=== PATIENT | female | born 1995 | race Caucasian/White ===

== ENCOUNTER 2018-02-15 12:57 | Emergency (ER) | payer OTHER ==
[~2018-02-15 12:57] MED LIST: AMOXICILLIN875 M1 PO; BACTRIM DS TAB1 EACH PO; IBUPROFEN800 M1 PO
--- NOTE | 2018-02-15 15:51 | ED ANIMAL BITE/WOUND CHECK ---
History of Present Illness General Chief Complaint: Suture Removal/Wound Recheck Stated Complaint: ABCESS CHECK Source: patient Exam Limitations: no limitations Vital Signs & Intake/Output Vital Signs & Intake/Output Vital Signs Date Time Temp Pulse Resp B/P B/P Pulse O2 O2 Flow FiO2 Mean Ox Delivery Rate 02/15 1307 98.3 91 16 110/72 96 Room Air Allergies Coded Allergies: peanut (Severe, ANAPHYLAXIS 02/11/18) Reconcile Medications Amoxicillin 875 MG TABLET 1 TAB PO BID ABSCESS Ibuprofen 800 MG TABLET 1 TAB PO TID PRN PAIN Sulfamethoxazole/Trimethoprim (Bactrim Ds Tablet) 800 MG-160 MG TABLET 1 TAB PO BID ABSCESS Triage Note: PT TO ED FOR ABCESS CHECK TO [facility]. Triage Nurses Notes Reviewed? yes Onset: Abrupt Duration: day(s): (5), better, gone now Timing: single episode today Injury Environment: home Is Injury an Animal Bite? No No Modifying Factors: none LMP (ages 10-50): unknown : No Patient currently breastfeeds: No HPI: 22-year-old female with no past medical history presents for evaluation and wound check. She had a incision and drainage of a pilonidal cyst 3 days ago. She's been taking antibiotics change dressing once daily. She feels like she is feeling much better. She's had no fever pain spreading redness or worsening swelling. She has kept the packing in place. Past History Travel History Traveled to [place] past 21 day No Medical History Any Pertinent Medical History? 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 No Review of Systems Review of Systems Constitutional: Reports: no symptoms. EENTM: Reports: no symptoms. Respiratory: Reports: no symptoms. Cardiovascular: Reports: no symptoms. GI: Reports: no symptoms. Genitourinary: Reports: no symptoms. Musculoskeletal: Reports: no symptoms. Skin: Reports: see HPI, cysts, lesions. Neurological/Psychological: Reports: no symptoms. Hematologic/Endocrine: Reports: no symptoms. Immunologic/Allergic: Reports: no symptoms. All Other Systems: Reviewed and Negative Physical Exam Physical Exam General Appearance: well developed/nourished, no apparent distress, alert, awake Head: atraumatic, normal appearance Eyes: Bilateral: normal appearance, EOMI. Ears, Nose, Throat: hearing grossly normal Neck: normal inspection, supple, full range of motion Respiratory: no respiratory distress Back: normal range of motion, pilonidal abscess site is healing well. Erythema has receded. There is still a 2 cm x 2 cm area of induration and tenderness to palpation. Small amount of purulent discharge.no focal fluctuant areas Extremities: normal range of motion Neurologic/Psych: no motor/sensory deficits, awake, alert, oriented x 3, normal gait Skin: intact, normal color, warm/dry Progress Differential Diagnosis: abscess, cellulitis, pilonidal cyst, pilonidal abscess Plan of Care: Patient seen and evaluated. Her abscess is healing well. Erythema has receded. Packing was removed small amount of purulent discharge present. The area was cleaned with chlorhexidine and a sterile dressing applied. Advised patient to continue taking antibiotics for the full course. Culture grew mixed sanam. Advised patient to follow up with general surgeon for definitive treatment. Discussed return precautions return with any concerns patient agrees. Departure Departure Disposition: HOME OR SELF CARE Condition: Stable Clinical Impression Primary Impression: Pilonidal abscess Referrals: Patient Has No Primary Care Dr (PCP/Family) Additional Instructions: Continue to take antibiotics for the full course. Continue to change dressing once daily. Apply warm compresses for 15-20 minutes every few hours. Make a follow-up appointment with provided general surgeon for definitive treatment. Monitor symptoms closely if you have worsening pain, fever, spreading redness any other concerns return immediately. Departure Forms: Customer Survey General Discharge Information
[2018-02-15 16:03] VITALS: BP 111/63
== END 2018-02-15 16:08 ==
LOC: ERH 12:57
DX: Z48.00 Encounter for change or removal of nonsurgical wound dressing (principal)

== ENCOUNTER 2018-03-22 17:19 | Emergency (ER) | payer OTHER ==
[~2018-03-22] VITALS: Ht 160 cm; Wt 63.5 kg
[2018-03-22 17:23] VITALS: BP 121/76
--- NOTE | 2018-03-22 17:48 | ED GI/GU/ABDOMINAL COMPLAINT ---
History of Present Illness General Chief Complaint: Female Urogenital Problems Stated Complaint: RECENT +PREG,CRAMPING,LIGHT BLEEDING,N/V Source: patient, family, old records Exam Limitations: no limitations Vital Signs & Intake/Output Vital Signs & Intake/Output Vital Signs Date Time Temp Pulse Resp B/P B/P Pulse O2 O2 Flow FiO2 Mean Ox Delivery Rate 03/22 1723 98.2 78 18 121/76 98 Room Air Allergies Coded Allergies: peanut (Severe, ANAPHYLAXIS 02/11/18) Reconcile Medications Amoxicillin 875 MG TABLET 1 TAB PO BID ABSCESS Ibuprofen 800 MG TABLET 1 TAB PO TID PRN PAIN Ondansetron (Zofran Odt) 4 MG TAB.RAPDIS 1 TAB SL TID PRN nausea Sulfamethoxazole/Trimethoprim (Bactrim Ds Tablet) 800 MG-160 MG TABLET 1 TAB PO BID ABSCESS Triage Note: PT TO ER C/C LOWER ABD CRAMPING, LIGHT VAGINAL BLEEDING AND N/V X 1 DAY. TOOK HOME TEST 2 DAYS AGO, +. LMP 02/02/2018. HAS NOT SEEN OBGYN YET. Triage Nurses Notes Reviewed? yes ? y Is pt currently ? No Onset: Abrupt Duration: day(s): (1), better, resolved prior to arrival Timing: recent history Quality/Severity: cramping Severity Numbers: 1 Location: generalized abdomen Radiation: no radiation Activities at Onset: none No Modifying Factors: none Associated Symptoms: nausea/vomiting HPI: 23-year-old female presents to the ER for evaluation after she developed light generalized abdominal cramping and vaginal spotting yesterday. Nausea vomiting times one today. They spotting and cramping has since resolved. She states her last menstrual cycle was February 02. She took a test 2 days ago that was positive. She is not establish care with a final installer inspector yet. Her only abdominal surgery see him for a . She denies diarrhea urinary urgency frequency and dysuria. No history of ectopic she denies pain at this time (Sp Dalal) Past History Travel History Traveled to [place] past 21 day No Medical History Any Pertinent Medical History? 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 No (Sp Dalal) Review of Systems Review of Systems Constitutional: Reports: see HPI. Comments Review of systems: See HPI, All other systems negative. Constitutional, no chills no fever, HEENT: no sore throat no congestion Cardiovascular: No chest pain Skin: no rashes, no change in skin Respiratory: No dyspnea no cough no sputum GI: No nausea no vomiting, no diarrhea, no bloating/constipation : No dysuria No hematuria, no frequency Muscle skeletal: No joint pain, no back pain, no neck pain Neurologic: , no headache Heme/endocrine: No bruising (Sp Dalal) Physical Exam Physical Exam General Appearance: well developed/nourished, no apparent distress, alert, awake Gastrointestinal: soft Comments: Well-developed well-nourished person in no acute distress HEENT: Normal EENT exam; PERRL, EOMI,HEAD is atraumatic. moist mucous membranes. Neck: Supple, normal range of motion Back: Nontender, no CVA tenderness. Full range of motion Cardiovascular: Regular rate and rhythms no murmurs Respiratory: No respiratory distress. Patient speaking in full complete sentences. Breath sounds clear to auscultation bilaterally: NO W/R/R Abdomen: Soft, nontender nondistended, no appreciable organomegaly. Normal bowel sounds. No rebound/guarding, Extremity: No edema, full range of motion of extremities Neuro: Alert oriented x3, motor sensory normal, There were no obvious focal neurologic abnormalities. Skin: No appreciable rash on exposed skin, skin is warm and dry. Psych: Mood and affect is normal, memory and judgment is normal. Core Measures ACS in differential dx? No Sepsis Present: No Sepsis Focused Exam Completed? No (Sp Dalal) Progress Differential Diagnosis: ectopic , intrauterine , threatened AB , UTI/pyelo Plan of Care: Orders Procedure Date/time Status RHOGAM WORK-UP 03/22 1740 Complete URINE 03/22 1721 Complete URINALYSIS 03/22 1721 Complete HUMAN BETA HCG TITRE 03/22 172 Complete COMPREHENSIVE METABOLIC PANEL 03/22 172 Complete CBC WITHOUT DIFFERENTIAL 03/22 172 Complete Laboratory Tests 03/22/18 1907: Urine Color YEL, Urine Clarity CLEAR, Urine pH 6.5, Ur Specific [place] 1.020, Urine Protein NEG, Urine Ketones NEG, Urine Nitrite NEG, Urine Bilirubin NEG, Urine Urobilinogen 0.2, Ur Leukocyte Esterase NEG, Ur Microscopic SEDIMENT EXAMINED, Urine RBC 1-3, Urine WBC 1-3 H, Ur Epithelial Cells FEW, Urine Bacteria FEW H, Urine Mucus MANY H, Urine Hemoglobin MOD H, Urine Glucose NEG , Urine Test POSITIVE 03/22/18 1750: Anion Gap 12, Estimated GFR > 60, BUN/Creatinine Ratio 13.3, Glucose 89, Calcium 9.5, Total Bilirubin 1.0, AST 19, ALT 22, Alkaline Phosphatase 62, Total Protein 7.5, Albumin 4.2, Globulin 3.3, Albumin/Globulin Ratio 1.3, Beta HCG, Quant 40744.0, CBC w Diff NO MAN DIFF REQ, RBC 4.29, MCV 88.8, MCH 30.0, MCHC 33.7, RDW 13.8, MPV 9.6, Gran % 69.6, Lymphocytes % 19.8 L, Monocytes % 7.9, Eosinophils % 2.4, Basophils % 0.3, Absolute Granulocytes 7.4 H, Absolute Lymphocytes 2.1, Absolute Monocytes 0.8 H, Absolute Eosinophils 0.3, Absolute Basophils 0 Patient medicated with IV Tylenol IV Zofran and IV fluids labs ordered case discussed with Dr. morales- patient is resting in no acute distress denies pain abdomen is soft Nontender at this time I discussed with the patient at length all of their results. saeed has no pain , abd exam is unremarkable and nontender, i d/w plan of care i will provide her with outpt form for us in am. I had an extensive conversation regarding need for close follow up with [employer] MECH[employer]IC Dr. astorga this week as well as return precautions. I answered all of their questions, they feel comfortable with the plan and follow-up care. I discussed with the patient/family the medications that they will receive. I gave them signs and symptoms that could indicate an adverse reaction. I have advised them to limit their activities until they can see how they respond to the medication. Initial ED EKG: none (Lisa RASHID,Sp) Departure Departure Time of Disposition: 1918 Disposition: HOME OR SELF CARE Condition: Stable Clinical Impression Primary Impression: Referrals: Patient Has No Primary Care Dr (PCP/Family) Moris Little MD Additional Instructions: Follow up with [facility] airspace control officer dr astorga tomorrow for follow up. tylenol for pain if it develops, zofran for nausea. return if you have any concerns Departure Forms: Customer Survey General Discharge Information Prescriptions: Current Visit Scripts Ondansetron (Zofran Odt) 1 TAB SL TID PRN nausea #10 TAB (Sp Dalal) PA/BRANCH EXAMINER Co-Sign Statement Statement: ED Attending supervision documentation- x I saw and evaluated the patient. I have also reviewed all the pertinent lab results and diagnostic results. I agree with the findings and the plan of care as documented in the PA's/BRANCH EXAMINER's documentation. [] I have reviewed the ED Record and agree with the PA's/BRANCH EXAMINER's documentation. [] Additions or exceptions (if any) to the PAs/BRANCH EXAMINER's note and plan are summarized below: [] (Denisse GREENWOOD,Jose)
[2018-03-22 18:12] LABS: ABSOLUTE BASOPHIL COUNT 0 /CUMM (0.0-0.2); ABSOLUTE EOSINOPHIL COUNT 0.3 /CUMM (0.0-0.7); ABSOLUTE GRANULOCYTE CT 7.4 /CUMM (1.4-6.5); ABSOLUTE LYMPH COUNT 2.1 /CUMM (1.2-3.4); ABSOLUTE MONOCYTE COUNT 0.8 /CUMM (0.10-0.60); BASOPHIL % 0.3 % (0.0-2.0); EOSINOPHIL % 2.4 % (0-5); GRANULOCYTE % 69.6 % (42.2-75.2); HEMATOCRIT 38.1 % (37-47); MEAN CORPUSCULAR HGB CONC 33.7 G/DL (33.0-37.0); MEAN CORPUSCULAR VOLUME 88.8 FL (81.0-99.0); MEAN PLATELET VOLUME 9.6 FL (7.4-10.4); PLATELET COUNT 279 /CUMM (130-400); RBC DISTRIBUTION WIDTH 13.8 % (11.5-14.5); RED BLOOD CELL CT 4.29 /CUMM (4.20-5.40); WHITE BLOOD CELL COUNT 10.6 /CUMM (4.8-10.8)
[2018-03-22] MEDS ORDERED: ZOFRAN ODT4 M1 SL (19:20)
== END 2018-03-22 19:35 ==
LOC: ERH 17:19
PROVIDERS: Physician Assistant Medical
DX: O20.9 Hemorrhage in early pregnancy, unspecified (principal); Z3A.00 Weeks of gestation of pregnancy not specified
CPT/HCPCS: 81001; 81025; 96374; 96375; J0131; J2405

== ENCOUNTER 2018-04-07 08:51 | Inpatient (IN) | payer OTHER ==
[~2018-04-07] VITALS: Ht 160 cm; Wt 72.6 kg
[~2018-04-07 08:51] MED LIST changes: +ZOFRAN ODT4 M1 SL
--- NOTE | 2018-04-07 11:11 | ED GENERAL ADULT ---
History of Present Illness General Chief Complaint: Nausea, Vomiting, Diarrhea Stated Complaint: PT STATES "IM PREG AND CANT KEEP ANYTHING IN" Source: patient Exam Limitations: no limitations Vital Signs & Intake/Output Vital Signs & Intake/Output Vital Signs Date Time Temp Pulse Resp B/P B/P Pulse O2 O2 Flow FiO2 Mean Ox Delivery Rate 04/08 0640 98.1 69 20 106/72 98 Room Air 04/07 2127 98.8 97 18 116/71 98 Room Air 04/07 1935 97 04/07 1925 98.9 97 18 102/57 99 Room Air 04/07 1731 97.3 76 18 112/56 98 04/07 1423 98.2 78 18 118/70 98 Room Air 04/07 1235 98.2 84 18 100/58 100 Room Air 04/07 0859 98.0 99 18 109/73 99 Room Air ED Intake and Output 04/08 0000 04/07 1200 Intake Total Output Total Balance Patient 160 lb 160 lb Weight Weight Reported by Patient Measurement Method Allergies Coded Allergies: peanut (Severe, ANAPHYLAXIS 02/11/18) Reconcile Medications No Known Home Medications Triage Note: 23F WELL APPEARING, STATES SHE'S BUT UNSURE HOW FAR ALONG HER OBGYN HAS NOT TOLD HER YET. FOLLOWED BY DR TRACEY. LAST MENSES January. REPORTS CRAMPING TO LOWER ABDOMEN, WITH YELLOW VAGINAL DISCHARGE. . STATES SHE HAS NOT BEEN ABLE TO EAT FOR 3 DAYS AND UNABLE TO KEEP FLUIDS DOWN. VOMITED X3 TODAY, ENDORSES POOR SLEEP AND DIZZINESS Triage Nurses Notes Reviewed? yes Onset: Gradual Duration: day(s): Timing: constant : Yes Patient currently breastfeeds: Yes HPI: 23 y/o otherwise healthy female at unknown gestation (LMP 02/02/18) presenting with fevers to 101F, NVD, and lower abd cramping x3 days. Also endorses scent yellow vaginal discharge. Denies dysuria, hematuria, or vaginal bleeding. No sick contacts or recent travel. (Josefa Madrigal) Past History Travel History Traveled to [place] past 21 day No Medical History Any Pertinent Medical History? 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 No (Josefa Madrigal) Review of Systems Review of Systems Constitutional: Reports: see HPI. EENTM: Reports: no symptoms. Respiratory: Reports: no symptoms. Cardiovascular: Reports: no symptoms. GI: Reports: see HPI. Genitourinary: Reports: see HPI. Musculoskeletal: Reports: no symptoms. Skin: Reports: no symptoms. Neurological/Psychological: Reports: no symptoms. Hematologic/Endocrine: Reports: no symptoms. Immunologic/Allergic: Reports: no symptoms. (Josefa Madrigal) Physical Exam Physical Exam General Appearance: well developed/nourished, alert, awake Head: atraumatic, normal appearance Eyes: Bilateral: normal appearance. Neck: normal inspection Respiratory: normal breath sounds, lungs clear Cardiovascular: regular rate/rhythm Gastrointestinal: normal bowel sounds (diffsue, worse in RLQ), soft, tenderness (RUQ), mild guarding, no rebound Back: normal inspection, Mild right CVAT Extremities: normal inspection Neurologic/Psych: awake, alert, oriented x 3, normal mood/affect Skin: intact, normal color, warm/dry Core Measures ACS in differential dx? No CVA/TIA Diagnosis: No Sepsis Present: No Sepsis Focused Exam Completed? No (Josefa Madrigal) Progress Differential Diagnoses I considered the following diagnoses in my evaluation of the patient: [ hyperemesis gravidarum vs gastroenteritis vs ectopic vs PID/TOA vs UTI/pyelo vs appendicitis] Plan of Care: Orders Procedure Date/time Status Regular Diet 04/08 B Active Weight 04/07 2213 Active Vital Signs 04/07 2213 Active Teach/Educate 04/07 2213 Active Pain Treatment and Response 04/07 2213 Active Nutritional Intake, Monitor 04/07 2213 Active Isolation 04/07 2213 Active Intake & Output 04/07 2213 Active Patient Care Conference 04/07 2213 Active Activity/Ambulation 04/07 2213 Active Patient Data 04/07 2042 Active ED Holding Orders 04/07 1840 Active Admit to inpatient 04/07 1840 Active Vital Signs 04/07 1840 Active Code Status 04/07 1840 Active CHLAMYDIA-GC DNA PROBE 04/07 1216 Active CULTURE,URINE 04/07 1113 Active URINALYSIS 04/07 1113 Complete LIPASE 06/13 1113 Complete HUMAN BETA HCG TITRE 04/07 1113 Complete CBC WITHOUT DIFFERENTIAL 04/07 1113 Complete BASIC METABOLIC PANEL 04/07 1113 Complete TYPE & SCREEN (NOT X-MATCH) 04/07 1113 Complete Admit to inpatient 04/07 UNK Active Current Medications Sig/Brandy Start time Last Medication Dose Stop Time Status Admin Ceftriaxone Sodium 2,000 MG DAILY 04/08 0900 AC (Rocephin) Folic Acid 1 MG DAILY 04/08 0900 AC (Folic Acid) Pyridoxine HCl 50 MG DAILY 04/07 1900 AC 04/07 (Vitamin B6) 2024 Metoclopramide HCl 5 MG Q4-6 PRN PRN 04/07 184 AC 04/07 (Reglan) 223 Ondansetron HCl 4 MG Q4-6 PRN PRN 04/07 184 AC 04/08 (Zofran) 0529 Sodium Chloride 1,000 ML Q10H 04/07 184 AC 04/08 (Normal Saline 0.9%) 0529 Laboratory Tests 04/07/18 1234: Urine Color YEL, Urine Clarity CLDY H, Urine pH 6.5, Ur Specific [place] 1.020, Urine Protein 30 H, Urine Ketones >=80, Urine Nitrite POS H, Urine Bilirubin NEG, Urine Urobilinogen 2.0 H, Ur Leukocyte Esterase TRACE H, Ur Microscopic SEDIMENT EXAMINED, Urine RBC 10-15 H, Urine WBC 15-25 H, Ur Epithelial Cells FEW, Urine Bacteria MANY H, Urine Hemoglobin LARGE H, Urine Glucose NEG 04/07/18 1142: Anion Gap 18 H, Estimated GFR > 60, BUN/Creatinine Ratio 24.0, Glucose 89, Calcium 10.2, Lipase 50, Beta HCG, Quant 561516.0, CBC w Diff NO MAN DIFF REQ, RBC 4.81, MCV 88.6, MCH 30.5, MCHC 34.4, RDW 13.8, MPV 9.0, Gran % 83.9 H, Lymphocytes % 10.7 L, Monocytes % 5.1, Eosinophils % 0.1, Basophils % 0.2, Absolute Granulocytes 11.4 H, Absolute Lymphocytes 1.5, Absolute Monocytes 0.7 H, Absolute Eosinophils 0, Absolute Basophils 0 Microbiology 04/07 1653 URINE ROUT: GC DNA Probe - RECD 04/07 1653 URINE ROUT: Chlamydia DNA Probe (MILLICENT) - RECD 04/07 [id number] URINE ROUT: Urine Culture - RECD UA concerning for infection with WBC's, RBC's, and nitrites. Culture sent. Covered with ceftriaxone. US shows IUP at 8 weeks gestation. No hydro or signs of renal stones. Likely with gastroenteritis and secondary UTI/pyelo from recent dirrhea. Discussed with Dr. Berry who evaluated the pt and will admit for further observation. Discussed with EDMD. Initial ED EKG: none (Josefa Madrigal) Departure Departure Disposition: STILL A PATIENT Condition: Stable Clinical Impression Primary Impression: Pyelonephritis Secondary Impressions: Abdominal pain, First trimester , Nausea vomiting and diarrhea Referrals: Moris Little MD (PCP/Family) Departure Forms: Customer Survey General Discharge Information Prescriptions: Current Visit Scripts No Known Home Medications Admission Note Spoke With: Charlie Berry MD Documentation of Exam: Documentation of any treatments & extenuating circumstances including Concerns Regarding Discharge (functional status, medication knowledge or non-compliance, living conditions, etc.) that warrant an admission rather than observation: [IV abx, IVF, anti-emetics, hemodynamic monitoring, monitoring] (Josefa Madrigal) PA/INSULATION PACKER Co-Sign Statement Statement: ED Attending supervision documentation- [X] I saw and evaluated the patient. I have also reviewed all the pertinent lab results and diagnostic results. I agree with the findings and the plan of care as documented in the PA's/INSULATION PACKER's documentation. [X] I have reviewed the ED Record and agree with the PA's/INSULATION PACKER's documentation. [] Additions or exceptions (if any) to the PAs/INSULATION PACKER's note and plan are summarized below: [Patient to be admitted for IV antibiotics to the gynecology service. Patient will need IV fluids. Closer monitored the baby.] (Danielle GREENWOOD,Chirag Jeong) Critical Care Note Critical Care Note Critical Care Time: non-applicable (Josefa Madrigal)
[2018-04-07 11:50] LABS: ABSOLUTE BASOPHIL COUNT 0 /CUMM (0.0-0.2); ABSOLUTE EOSINOPHIL COUNT 0 /CUMM (0.0-0.7); ABSOLUTE GRANULOCYTE CT 11.4 /CUMM (1.4-6.5); ABSOLUTE LYMPH COUNT 1.5 /CUMM (1.2-3.4); ABSOLUTE MONOCYTE COUNT 0.7 /CUMM (0.10-0.60); BASOPHIL % 0.2 % (0.0-2.0); EOSINOPHIL % 0.1 % (0-5); GRANULOCYTE % 83.9 % (42.2-75.2); HEMATOCRIT 42.6 % (37-47); MEAN CORPUSCULAR HGB 30.5 PG (27.0-31.0); MEAN CORPUSCULAR HGB CONC 34.4 G/DL (33.0-37.0); MEAN CORPUSCULAR VOLUME 88.6 FL (81.0-99.0); PLATELET COUNT 317 /CUMM (130-400); RBC DISTRIBUTION WIDTH 13.8 % (11.5-14.5); RED BLOOD CELL CT 4.81 /CUMM (4.20-5.40); WHITE BLOOD CELL COUNT 13.6 /CUMM (4.8-10.8)
--- NOTE | 2018-04-07 14:48 | ULTRASOUND REPORT ---
EXAMINATION: ULTRASOUND OF THE PELVIS ULTRASOUND OF THE RIGHT LOWER QUADRANT CLINICAL INFORMATION: Right lower quadrant pain in a patient. Presumptive diagnosis of appendicitis. Evaluate viability. COMPARISON: ultrasound dated 03/23/2018. TECHNIQUE: Transabdominal viability pelvic ultrasound. A graded compression right lower quadrant ultrasound was also performed. Real-time assessment by the reading radiologist was performed. FINDINGS: Based on the initial dating exam from 03/23/2018, a 8 week gestation is expected with an estimated date of delivery of 11/15/2018. Ultrasound of the pelvis: A single live intrauterine gestation is identified with a positive heartbeat of 154 bpm. The decidual reaction around the gestational sac appears normal. There may be a subtle small amount of subchorionic hemorrhage along the inferior margin of the lower uterine segment. A pole is not identified with a crown-rump length of 1.6 cm which equals 8 weeks and 0 days. A yolk sac is identified, measuring 0.3 cm. The ovaries bilaterally are identified and are normal. The left ovary measures 3.3 x 1.65 2.2 cm and demonstrates normal arterial and venous flow. The right ovary measures 3.8 x 1.9 x 2.8 cm and also demonstrates normal arterial and venous flow. There is a small amount of free fluid seen in the cul-de-sac. Right lower quadrant ultrasound: The appendix is not definitely demonstrated due to overlying gas and stool. On initial imaging, a tubular fluid-filled 0.4 cm diameter structure was seen superficially in the right lower quadrant, thought to represent the appendix. However, this was not confirmed on real-time scanning. No inflammatory changes are identified in the right lower quadrant. There is no free fluid in the right lower quadrant. As discussed above, there is a small amount of free fluid in the cul-de-sac. IMPRESSION: 1. Single live intrauterine gestation is identified with a positive heartbeat of 154 bpm and an average gestational age of 8 weeks and 5 days, yielding an estimated date of delivery of 11/12/2018. These dates are similar to the originally established dates. 2. There may be a trace amount of subchorionic hemorrhage along the inferior margin of the lower uterine segment. 3. Ovaries bilaterally appear unremarkable. 4. Small amount of free fluid is seen in the cul-de-sac, likely physiologic. 5. Evaluation of the appendix is non-diagnostic due to overlying gas and stool. No inflammatory changes identified in the right lower quadrant.
--- NOTE | 2018-04-07 17:41 | ULTRASOUND REPORT ---
EXAMINATION: RENAL ULTRASOUND CLINICAL INFORMATION: Right flank pain. Hematuria. COMPARISON: None. TECHNIQUE: Real-time imaging of the kidneys and bladder. FINDINGS: RIGHT KIDNEY: There is neither hydronephrosis nor nephrolithiasis. The right kidney measures 10.8 cm. LEFT KIDNEY: There is neither hydronephrosis nor nephrolithiasis. The left kidney measures 12.0 cm. BLADDER: The urinary bladder is partially filled and unremarkable. There is no wall thickening. There is no pelvic free fluid. IMPRESSION: Normal renal and bladder ultrasound.
--- NOTE | 2018-04-07 18:59 | Cons- OBGYN ---
General Information and HPI Consulting Request Date of Consult: 04/07/18 Requested By: Dr Santos/Josefa RASHID Reason for Consult: Abdominal pain nausea and vomiting and abnormal urine in female with Source of Information: patient Exam Limitations: no limitations History of Present Illness: Patient is a 23 year old at 8 weeks by lmp who presents with 3 day history of nausea and vomiting and fever. Patient states she did take Zofran at home but wasnt helping. She states she is hungry. Denies vaginal bleeding. Allergies/Medications Allergies: Coded Allergies: peanut (Severe, ANAPHYLAXIS 02/11/18) Home Med List: No Known Home Medications Current Medications: Current Medications Sig/Brandy Start time Last Medication Dose Route Stop Time Status Admin Acetaminophen 0 .STK-MED ONE 04/07 1202 DC IV Acetaminophen 1,000 MG ONCE ONE 04/07 1130 DC 04/07 N/A 1 UNIT IV 04/07 1144 1204 Ceftriaxone Sodium 2,000 MG DAILY 04/08 0900 UNVr IV Ceftriaxone Sodium 0 .STK-MED ONE 04/07 1543 DC .ROUTE Ceftriaxone Sodium 1,000 MG ONCE ONE 04/07 1515 DC 04/07 IV 04/07 1516 1543 Metoclopramide HCl 5 MG Q4-6 PRN PRN 04/07 1845 UNVr IV Metoclopramide HCl 0 .STK-MED ONE 04/07 1825 DC .ROUTE Metoclopramide HCl 10 MG ONCE ONE 04/07 1800 DC 04/07 IV 04/07 1801 1822 Ondansetron HCl 4 MG Q4-6 PRN PRN 04/07 1845 UNVr IV Ondansetron HCl 0 .STK-MED ONE 04/07 1543 DC .ROUTE Ondansetron HCl 4 MG ONCE ONE 04/07 1515 DC 04/07 IV 04/07 1516 1543 Ondansetron HCl 0 .STK-MED ONE 04/07 1202 DC .ROUTE Ondansetron HCl 4 MG ONCE ONE 04/07 1115 DC 04/07 IV 04/07 1116 1204 Sodium Chloride 1,000 ML Q10H 04/07 1845 UNVr IV Sodium Chloride 1,000 ML BOLUS ONE 04/07 1115 DC 04/07 IV 04/07 1214 1204 Past History Medical History Blood Transfusion Hx: No Neurological: NONE EENT: NONE Cardiovascular: NONE Respiratory: NONE Gastrointestinal: NONE Hepatic: NONE Renal: NONE Musculoskeletal: NONE Psychiatric: NONE Endocrine: NONE Blood Disorders: NONE Cancer(s): NONE ARCHIVIST/Reproductive: NONE Surgical History Pertinent Surgical History: none (LTCS for arrest of labor 2014), Psychosocial History Where Do You Live? Home Who Do You Live With? spouse, child Services at Home: None Primary Language: Khmer Smoking Status: Never Smoked ETOH Use: denies use Illicit Drug Use: denies illicit drug use Living Will? unknown Power of Counter Attendant/HCP? unknown Functional Ability ADLs Independent: dressing, eating, toileting, bathing. Ambulation: independent IADLs Independent: shopping, housework, finances, food prep, telephone, transportation , medication admin. Employment History Employment: Unemployed Retired? no Review of Systems Review of Systems Constitutional: Reports: fever, malaise, weakness. EENTM: Denies: no symptoms. Cardiovascular: Denies: no symptoms. Respiratory: Denies: no symptoms. GI: Reports: abdominal pain, diarrhea, nausea, vomiting. Genitourinary: Reports: pain. Musculoskeletal: Reports: back pain. Skin: Denies: no symptoms. Neurological/Psychological: Denies: no symptoms. Hematologic/Endocrine: Denies: no symptoms. Immunologic/Allergic: Denies: no symptoms. All Other Systems: Reviewed and Negative Exam & Diagnostic Data Vital Signs and I&O Vital Signs Date Time Temp Pulse Resp B/P B/P Pulse O2 O2 Flow FiO2 Mean Ox Delivery Rate 04/07 1731 97.3 76 18 112/56 98 04/07 1423 98.2 78 18 118/70 98 Room Air 04/07 1235 98.2 84 18 100/58 100 Room Air 04/07 0859 98.0 99 18 109/73 99 Room Air Intake & Output 04/07 1600 04/07 0800 04/07 0000 04/06 1600 04/06 0800 04/06 0000 Intake Total Output Total Balance Patient 72.575 kg Weight Physical Exam General Appearance: alert, awake, moderate distress Head: atraumatic, normal appearance Eyes: Bilateral: normal appearance. Neck: normal inspection, supple Respiratory: normal breath sounds, no respiratory distress Cardiovascular: regular rate/rhythm Gastrointestinal: soft Back: CVA tenderness (R) Extremities: normal inspection Neurologic/Psych: no motor/sensory deficits, awake, alert, oriented x 3 Cranial Nerves: normal hearing, normal speech Skin: warm/dry Last 24 Hours of Labs: Laboratory Tests 04/07 04/07 1234 1142 Chemistry Sodium (137 - 145 mmol/L) 140 Potassium (3.5 - 5.1 mmol/L) 4.1 Chloride (98 - 107 mmol/L) 99 Carbon Dioxide (22 - 30 mmol/L) 23 Anion Gap (5 - 16) 18 H BUN (7 - 17 mg/dL) 12 Creatinine (0.5 - 1.0 mg/dL) 0.5 Estimated GFR (>60 ml/min) > 60 BUN/Creatinine Ratio (7 - 25 %) 24.0 Glucose (65 - 99 mg/dL) 89 Calcium (8.4 - 10.2 mg/dL) 10.2 Lipase (23 - 300 U/L) 50 Beta HCG, Quant (mIU/mL) 347407.0 Hematology CBC w Diff NO MAN DIFF REQ WBC (4.8 - 10.8 /CUMM) 13.6 H RBC (4.20 - 5.40 /CUMM) 4.81 Hgb (12.0 - 16.0 G/DL) 14.7 Hct (37 - 47 %) 42.6 MCV (81.0 - 99.0 FL) 88.6 MCH (27.0 - 31.0 PG) 30.5 MCHC (33.0 - 37.0 G/DL) 34.4 RDW (11.5 - 14.5 %) 13.8 Plt Count (130 - 400 /CUMM) 317 MPV (7.4 - 10.4 FL) 9.0 Gran % (42.2 - 75.2 %) 83.9 H Lymphocytes % (20.5 - 51.1 %) 10.7 L Monocytes % (1.7 - 9.3 %) 5.1 Eosinophils % (0 - 5 %) 0.1 Basophils % (0.0 - 2.0 %) 0.2 Absolute Granulocytes (1.4 - 6.5 /CUMM) 11.4 H Absolute Lymphocytes (1.2 - 3.4 /CUMM) 1.5 Absolute Monocytes (0.10 - 0.60 /CUMM) 0.7 H Absolute Eosinophils (0.0 - 0.7 /CUMM) 0 Absolute Basophils (0.0 - 0.2 /CUMM) 0 Urines Urine Color (YEL,AMB,STR) YEL Urine Clarity (CLEAR) CLDY H Urine pH (5.0 - 8.0) 6.5 Ur Specific Poth (1.001 - 1.035) 1.020 Urine Protein (NEG,<30 MG/DL) 30 H Urine Ketones (NEG) >=80 Urine Nitrite (NEG) POS H Urine Bilirubin (NEG) NEG Urine Urobilinogen (0.1 - 1.0 EU/dl) 2.0 H Ur Leukocyte Esterase (NEG) TRACE H Ur Microscopic SEDIMENT EXAMINED Urine RBC (0 - 5 /HPF) 10-15 H Urine WBC (0 - 2 /HPF) 15-25 H Ur Epithelial Cells (NONE,FEW) FEW Urine Bacteria (NEG/NONE) MANY H Urine Hemoglobin (NEG) LARGE H Urine Glucose (N MG/DL) NEG Imaging Results: Normal renal ultrasound US showing IUP with small subchorionic bleed No free fluid Other Results: No inflammatory changes in RLQ Assessment/Plan Assessment/Plan Patient is a 23 year old female with complicated by history of LTCS and now with right sided pyelonephritis. In my opinion this is not appendicitis. In my opinion her condition warrents admission as I dont think she will be able to tolerate PO at home. Admit ID. Continue 1 gram Ceftriaxone q24 hours. Follow fever curve. Watch for improvement in clinical findings and follow up urine culture. Nausea and vomiting. Stagger dosing of Zofran and reglan prn for nausea. Fen/GI. Maintain on IVF at 100 cc per hour and allow diet as tolerated. Add Vitamin B6 for aid with nausea. confirmed in uterus. MIKE of 11/15/18. Hcg near 200k however no findings of molar . History of LTCS. She will need follow up after discharge with Dr Rodarte who is her stated provider. Face to face ER time and review of records 30 minutes. Ample time for questions for patient and partner. If significant improvement in patient clinically than dc tomorrow however may require up to 48 hours for symptom improvement. She will need to take antibiotics for 10 days and then continue on suppression for to reduce recurrence. Problem List: 1. Pyelonephritis affecting in first trimester Consult Acknowledgment - Thank you for your consult request.
[2018-04-08 06:40] VITALS: BP 106/72
[2018-04-08 13:26] VITALS: BP 116/67
[2018-04-08 22:19] VITALS: BP 100/60
[2018-04-09 06:59] VITALS: BP 100/64
[2018-04-09 13:09] LABS: ABSOLUTE BASOPHIL COUNT 0 /CUMM (0.0-0.2); ABSOLUTE EOSINOPHIL COUNT 0.1 /CUMM (0.0-0.7); ABSOLUTE GRANULOCYTE CT 7.4 /CUMM (1.4-6.5); ABSOLUTE LYMPH COUNT 1.5 /CUMM (1.2-3.4); ABSOLUTE MONOCYTE COUNT 0.9 /CUMM (0.10-0.60); BASOPHIL % 0.4 % (0.0-2.0); EOSINOPHIL % 0.8 % (0-5); GRANULOCYTE % 74.8 % (42.2-75.2); MEAN CORPUSCULAR HGB 30.9 PG (27.0-31.0); MEAN CORPUSCULAR HGB CONC 35.3 G/DL (33.0-37.0); MEAN CORPUSCULAR VOLUME 87.5 FL (81.0-99.0); MEAN PLATELET VOLUME 9.2 FL (7.4-10.4); PLATELET COUNT 234 /CUMM (130-400); RBC DISTRIBUTION WIDTH 13.9 % (11.5-14.5); RED BLOOD CELL CT 3.75 /CUMM (4.20-5.40); WHITE BLOOD CELL COUNT 9.9 /CUMM (4.8-10.8)
[2018-04-09 13:28] LABS: HEMATOCRIT 32.8 % (37-47)
[2018-04-09 14:51] VITALS: BP 110/75
--- NOTE | 2018-04-09 16:05 | PN- General Surgery ---
Subjective Subjective: PAIN IMPROVED; TOLERATING SOFT DIET Review of Systems: NO PAIN; MILD NAUSEA Objective Vital Signs and I&Os Vital Signs Date Time Temp Pulse Resp B/P B/P Pulse O2 O2 Flow FiO2 Mean Ox Delivery Rate 04/09 1451 98.5 78 20 110/75 99 Room Air 04/09 0800 Room Air 04/09 0659 98.7 83 20 100/64 98 Room Air 04/08 2219 98.1 77 21 100/60 97 Room Air Intake & Output 04/09 1600 04/09 0800 04/09 0000 04/08 1600 04/08 0000 Intake Total 1400 1160 1400 1280 1040 Output Total 100 650 50 Balance 1400 3675 575 1171 990 Intake, IV 800 800 800 800 800 Intake, Oral 600 360 600 480 240 Output, 100 250 50 Emesis Output, Urine 400 Patient 160 lb 160 lb Weight Weight Reported by Patient Measurement Method URINE CX NO GROWTH Physical Exam: CTA ABD SOFT EXT NT Assessment/Plan Assessment/Plan EARLY NO PYELONEPHRITIS PROBABLE HYPEREMESIS GRAVIDARUM POSSIBLE DISCHARGE IN AM Core Measures Venous Thromboembolism VTE Risk Factors / No Mechanical VTE Prophylaxis d/t Early Ambulation No VTE Pharm Prophylaxis d/t Other
[2018-04-09 22:07] VITALS: BP 124/75
[2018-04-10 06:47] VITALS: BP 110/64
[2018-04-10] MEDS ORDERED: MACRODANTIN50 M1 PO (11:22)
[2018-04-10] MEDS ORDERED: ONDANSETRON ODT4 M1 PO (11:22)
[2018-04-10] MEDS ORDERED: VITAMIN B-650 M2 PO (11:22)
[2018-04-10] MEDS ORDERED: FOLIC ACID1 M1 PO (11:22)
== END 2018-04-10 12:15 | DRG 566 ==
LOC: ERH 08:51 → 2NA 18:40 → ERHI 18:40 → ENRESERV 21:18 → ENTRNSPT 21:50 → EDTRNSPTSTS 21:59 → 2NA 22:08 → CMPTRNSPT 22:18 → 2NA 04-10 12:15
PROVIDERS: Obstetrics & Gynecology; Physician Assistant
DX: O21.0 Mild hyperemesis gravidarum (principal); Z3A.08 8 weeks gestation of pregnancy
CPT/HCPCS: 2NAP; 36592; 76775; 81001; 87086; 87491; 87591; 96374; 96375; J0131; J0696; J2405; J2765; J3101; J3490

== ENCOUNTER 2018-05-18 21:02 | Emergency (ER) | payer OTHER ==
[~2018-05-18] VITALS: Ht 162.6 cm; Wt 61.2 kg
[~2018-05-18 21:02] MED LIST changes: +FOLIC ACID1 M1 PO; +MACRODANTIN50 M1 PO; +ONDANSETRON ODT4 M1 PO; +VITAMIN B-650 M2 PO
[2018-05-18 21:26] VITALS: BP 120/61
--- NOTE | 2018-05-18 22:09 | ED GI/GU/ABDOMINAL COMPLAINT ---
History of Present Illness General Chief Complaint: Uterine Contractions(Pregnacy) Stated Complaint: BIBA LOWER ABD PAIN 14 WEEK PREG Source: patient Exam Limitations: no limitations Vital Signs & Intake/Output Vital Signs & Intake/Output Vital Signs Date Time Temp Pulse Resp B/P B/P Pulse O2 O2 Flow FiO2 Mean Ox Delivery Rate 05/18 2126 98.6 78 18 120/61 99 Room Air ED Intake and Output 05/19 0000 05/18 1200 Intake Total Output Total Balance Patient 135 lb Weight Weight Reported by Patient Measurement Method Allergies Coded Allergies: peanut (Severe, ANAPHYLAXIS 02/11/18) Reconcile Medications Folic Acid 1 MG TABLET 1 MG PO DAILY Nitrofurantoin (Macrodantin) 50 MG CAPSULE 50 MG PO Q6 UTI Nitrofurantoin Monohyd/M-Cryst (Macrobid 100 MG Capsule) 100 MG CAPSULE 1 CAP PO BID UTI with food Ondansetron (Ondansetron Odt) 4 MG TAB.RAPDIS 4 MG PO Q6-PRN PRN NAUSEA/ VOMITING Vit No.130/Iron/FA ( Tablet) 27 MG IRON-800 MCG TABLET 1 TAB PO DAILY Pyridoxine HCl (Vitamin B-6) 50 MG TABLET 50 MG PO DAILY NAUSEA Triage Note: BIBA WITH C/O LOW ABDOMINAL PAIN. PATIENT REPORTS SHE IS 14 WEEKS , SHE DENIES CARE, DENIES SEEING HER OBGYN RELATED TO THE YET. PATIENT IS G3,P1. PATIENT DENIES VITAMINS STATING "I CANT AFFORD THEM". PATIENT DENIES SPOTTING AND SAYS "THE PAIN JUST GOT WORSE SO I CALLED THE AMBULANCE". VITALS OBTAINED, CHANGED INTO HOSPITAL GOWN. AWAITING PROVIDER EVAL. Triage Nurses Notes Reviewed? yes ? Y Is pt currently ? No Onset: Gradual Duration: day(s): Timing: recent history Quality/Severity: cramping Location: suprapubic Radiation: no radiation Activities at Onset: none Prior Abdominal Problems: none Modifying Factors: Worsens With: palpation, urinating. 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 She has no fever, chills, diarrhea, nausea, vomiting. She is otherwise well. Past History Travel History Traveled to [place] past 21 day No Medical History Any Pertinent Medical History? 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 No Review of Systems Review of Systems Constitutional: Reports: no symptoms. EENTM: Reports: no symptoms. Respiratory: Reports: no symptoms. Cardiovascular: Reports: no symptoms. GI: Reports: no symptoms. Genitourinary: Reports: no symptoms. Musculoskeletal: Reports: no symptoms. Skin: Reports: no symptoms. Neurological/Psychological: Reports: no symptoms. Hematologic/Endocrine: Reports: no symptoms. Immunologic/Allergic: Reports: no symptoms. All Other Systems: Reviewed and Negative Physical Exam Physical Exam Gastrointestinal: normal bowel sounds, soft Comments: Review of Systems - except as otherwise noted in HPI Review of Systems Constitutional:no symptoms. EENTM:no symptoms. Respiratory:no symptoms. Cardiovascular:no symptoms. GI:no symptoms. Genitourinary:no symptoms. Musculoskeletal:no symptoms. Skin:no symptoms. Neurological/Psychological:no symptoms. Hematologic/Endocrine:no symptoms. Immunologic/Allergic:no symptoms. All Other Systems: Reviewed and Negative Physical Exam Physical Exam General Appearance: well developed/nourished, no apparent distress Head: atraumatic, normal appearance Eyes: Bilateral: normal appearance. Ears, Nose, Throat: normal pharynx, normal ENT inspection Neck: normal inspection, supple, full range of motion Respiratory: normal breath sounds, chest non-tender, no respiratory distress, quiet respiration, lungs clear Cardiovascular: regular rate/rhythm Gastrointestinal: normal bowel sounds, soft, mild suprapubic tenderness to palpation. no organomegaly Back: normal inspection, normal range of motion Extremities: normal inspection, normal capillary refill, normal range of motion, no edema Neurologic/Psych: no motor/sensory deficits, awake, alert, oriented x 3 Skin: intact, normal color, warm/dry Core Measures ACS in differential dx? No Sepsis Present: No Sepsis Focused Exam Completed? No Progress Differential Diagnosis: uti vs other. Plan of Care: Orders Procedure Date/time Status URINALYSIS 05/18 2209 Complete HUMAN BETA HCG TITRE 05/18 2209 Complete COMPREHENSIVE METABOLIC PANEL 05/18 2209 Complete CBC WITHOUT DIFFERENTIAL 05/18 2209 Complete Laboratory Tests 05/18/180: Anion Gap 9, Estimated GFR > 60, BUN/Creatinine Ratio 6.0 L, Glucose 84, Calcium 9.1, Total Bilirubin 0.8, AST 14, ALT 22, Alkaline Phosphatase 51, Total Protein 6.6, Albumin 3.6, Globulin 3.0, Albumin/Globulin Ratio 1.2, Beta HCG, Quant 98920.0, CBC w Diff NO MAN DIFF REQ, RBC 3.91 L, MCV 88.5, MCH 30.2, MCHC 34.2, RDW 13.8, MPV 8.2, Gran % 76.2 H, Lymphocytes % 16.1 L, Monocytes % 6.3, Eosinophils % 1.1, Basophils % 0.3, Absolute Granulocytes 9.2 H, Absolute Lymphocytes 1.9, Absolute Monocytes 0.8 H, Absolute Eosinophils 0.1, Absolute Basophils 0, Urine Color YEL, Urine Clarity HAZY H, Urine pH 7.0, Ur Specific [place] 1.015, Urine Protein NEG, Urine Ketones TRACE H, Urine Nitrite NEG, Urine Bilirubin NEG, Urine Urobilinogen 0.2, Ur Leukocyte Esterase MOD H, Ur Microscopic SEDIMENT EXAMINED, Urine RBC 1-3, Urine WBC 5-10 H, Ur Epithelial Cells MOD H, Urine Bacteria FEW H, Urine Mucus FEW, Urine Hemoglobin TRACE- INTACT, Urine Glucose NEG Initial ED EKG: none Departure Departure Disposition: HOME OR SELF CARE Condition: Stable Clinical Impression Primary Impression: Secondary Impressions: Threatened miscarriage, Urinary tract infection Referrals: Moris Little MD (PCP/Family) Departure Forms: Customer Survey General Discharge Information Prescriptions: Current Visit Scripts Nitrofurantoin Monohyd/M-Cryst (Macrobid 100 MG Capsule) 1 CAP PO BID #14 CAP with food Vit No.130/Iron/FA ( Tablet) 1 TAB PO DAILY #30 TAB Ref 1 Comments 05/19/18, 0:13AM... bedside u/s by edmd reveals intrauterine fetus with heart movement approx 150 bpm. benign physical exam. abd with mild suprapubic tenderness. will treat for uti. advocated bed rest pt will follow up with building illuminating engineer
[2018-05-18 22:37] LABS: ABSOLUTE BASOPHIL COUNT 0 /CUMM (0.0-0.2); ABSOLUTE EOSINOPHIL COUNT 0.1 /CUMM (0.0-0.7); ABSOLUTE GRANULOCYTE CT 9.2 /CUMM (1.4-6.5); ABSOLUTE LYMPH COUNT 1.9 /CUMM (1.2-3.4); ABSOLUTE MONOCYTE COUNT 0.8 /CUMM (0.10-0.60); BASOPHIL % 0.3 % (0.0-2.0); EOSINOPHIL % 1.1 % (0-5); GRANULOCYTE % 76.2 % (42.2-75.2); HEMATOCRIT 34.6 % (37-47); MEAN CORPUSCULAR HGB 30.2 PG (27.0-31.0); MEAN CORPUSCULAR HGB CONC 34.2 G/DL (33.0-37.0); MEAN CORPUSCULAR VOLUME 88.5 FL (81.0-99.0); MEAN PLATELET VOLUME 8.2 FL (7.4-10.4); PLATELET COUNT 247 /CUMM (130-400); RBC DISTRIBUTION WIDTH 13.8 % (11.5-14.5); RED BLOOD CELL CT 3.91 /CUMM (4.20-5.40); WHITE BLOOD CELL COUNT 12.1 /CUMM (4.8-10.8)
[2018-05-19] MEDS ORDERED: MACROBID 100 M100 MG PO (00:12)
[2018-05-19] MEDS ORDERED: PRENATAL TABLE1 EAC2 PO (00:14)
== END 2018-05-19 00:40 ==
LOC: ERH 21:02
PROVIDERS: Pediatrics
DX: O23.42 Unspecified infection of urinary tract in pregnancy, second trimester (principal); O20.0 Threatened abortion; Z3A.14 14 weeks gestation of pregnancy
CPT/HCPCS: 81001